=== PATIENT | female | born 1955 | race Caucasian/White ===

== ENCOUNTER → 2016-08-01 | Outpatient (CLI) | payer OTHER ==
[~2016-08-01] MED LIST: ALEN70TA2 PO; AMLO10TA2 PO; CALC-445 PO; CALC0.5C PO; CHOL1TAB42 PO; CYAN10002 IM; FERR325T5 PO; HYDR25TA4 PO; LEVO125T5 PO; METR0.7536 TOP; MULTTAB58 PO; OMEG7.5C PO; POLY335025 PO; SENN1TAB86 PO; VENL150C56 PO; VENL75CA73 PO
--- NOTE | 2016-08-02 13:46 | MAMMOGRAPHY REPORT ---
UNILATERAL LEFT DIGITAL SCREENING MAMMOGRAM TOMOSYNTHESIS WITH CAD: 08/01/2016 CLINICAL HISTORY: Asymptomatic. Personal history of breast cancer. TECHNIQUE: Breast tomosynthesis in addition to standard 2D mammography was performed of the left br east. Current study was also evaluated with a Computer Aided Detection (CAD) system. COMPARISON: Comparison is made to exams dated: 01/14/2015 mammogram, 06/20/2012 mammogram, 02/23/2011 mammogram, 01/31/2010 mammogram - [facility], and 12/31/2008. BREAST COMPOSITION: The tissue of the left breast is heterogeneously dense, which may obscure small masses. FINDINGS: There is a possible new 6 mm mass in the upper inner middle to posterior left breast, bes t seen on the CC tomosynthesis slice 29, for which additional spot compression tomosynthesis HD view s and possibly ultrasound are recommended. Otherwise, there are stable postsurgical changes throughout the left breast and a stable metallic bi opsy marker in the superior breast. Benign vascular calcifications and rim calcifications are again seen. No other suspicious mass, architectural distortion or cluster of microcalcifications is seen. IMPRESSION: ACR BI-RADS CATEGORY 0: INCOMPLETE EVALUATION: NEED ADDITIONAL IMAGING EVALUATION The possible new 6 mm mass in the left breast needs additional evaluation. The patient will be called to schedule an appointment. Approximately 10% of breast cancers are not detected with mammography. A negative mammographic repor t should not delay biopsy if a clinically suggestive mass is present. Jenny Grey M.D. ay/:08/01/2016 17:13:28 [employer] Edge Beveler: Jamshid BOWERS(R)(M), [facility] letter sent: Addl Imaging 0 BI-RADS Code: ACR BI-RADS Category 0: Incomplete Evaluation: Need Additional Imaging Evaluation
== END | disposition home or self-care (01) ==
LOC: C.MAMM 16:47
PROVIDERS: ATTEND Nurse Practitioner Family
DX: Z12.31 Encounter for screening mammogram for malignant neoplasm of breast (principal); N63 Unspecified lump in breast

== ENCOUNTER → 2016-08-17 | Outpatient (CLI) | payer OTHER ==
[~2016-08-17] MED LIST changes: -CALC0.5C PO; +CALC0.5C17 PO; +LEVO125T4 PO; -LEVO125T5 PO; -SENN1TAB86 PO; +SENN8.6T15 PO
--- NOTE | 2016-08-17 16:27 | MAMMOGRAPHY REPORT ---
UNILATERAL LEFT DIGITAL DIAGNOSTIC MAMMOGRAM TOMOSYNTHESIS AND TARGETED LEFT ULTRASOUND: 08/17/2016 CLINICAL HISTORY: Callback from screening mammogram for left breast asymmetry. TECHNIQUE: Breast tomosynthesis in addition to standard 2D mammography was performed. Left CC and MLO 2-D and tomosynthesis spot compression views were obtained. COMPARISON: Comparison is made to exams dated: 08/01/2016 mammogram, 01/14/2015 mammogram, 08/12/2013 m ammogram, 06/20/2012 mammogram, 02/23/2011 mammogram, and 02/07/2011 mammogram - [facility]. BREAST COMPOSITION: The tissue of the left breast is heterogeneously dense, which may obscure small masses. FINDINGS: The previously seen asymmetry in the left upper inner quadrant effaces on the additional spot compression views, with appearance of this region similar to prior exams dating back to at t 2008. No suspicious mass or other suspicious abnormality is seen in this region on the tomosynthes is images. Targeted ultrasound was performed of the left medial breast in the region of the mammographic asymme try. Sonographically normal tissue is seen, without evidence of a mass or other suspicious sonograp hic abnormality. Expected postsurgical changes are seen within the left breast at 9:00 on ultrasoun d at the site of her lumpectomy scar. IMPRESSION: ACR BI-RADS CATEGORY 2: BENIGN, TARGETED ULTRASOUND ACR BI-RADS CATEGORY 2: BENIGN The left breast asymmetry effaces on the additional views, without corresponding suspicious sonograp hic abnormalities evident. The asymmetry is benign and compatible with normal overlapping fibroglan dular tissue. There is no mammographic or targeted sonographic evidence of malignancy. A 1 year scr eening mammogram is recommended. The patient has been verbally notified of the results. Approximately 10% of breast cancers are not detected with mammography. A negative mammographic repor t should not delay biopsy if a clinically suggestive mass is present. Malka Fountain M.D. /:08/17/2016 14:39:38 Draw Operator: Jacque Hernandez, [facility] letter sent: Normal 1/2 BI-RADS Code: ACR BI-RADS Category 2: Benign Ultrasound BI-RADS: ACR BI-RADS Category 2: Benign
== END | disposition home or self-care (01) ==
LOC: C.MAMM 14:10
PROVIDERS: ATTEND Nurse Practitioner Family
DX: N64.89 Other specified disorders of breast (principal)

== ENCOUNTER → 2016-09-04 | Outpatient (CLI) | payer OTHER | END | disposition home or self-care (01) | LOC: C.LABPVFM 11:37 | PROVIDERS: ATTEND Nurse Practitioner Family | DX: D51.0 Vitamin B12 deficiency anemia due to intrinsic factor deficiency (principal) ==

== ENCOUNTER → 2017-03-19 | Outpatient (CLI) | payer OTHER ==
[2017-03-19 12:34] LABS: ALT/SGPT 69 U/L (12-78); AST/SGOT 55 U/L (15-37); BLOOD UREA NITROGEN 14 mg/dl (7-18); BUN/CREATININE RATIO 14.7 (10-20); CALCIUM 9.2 mg/dl (8.5-10.1); CARBON DIOXIDE 31 mmol/L (21-32); CHLORIDE 95 mmol/L (98-107); CHOLESTEROL 219 mg/dl (0-200); CREATININE 0.92 mg/dl (0.60-1.20); GLUCOSE 91 mg/dl (70-99); POTASSIUM 3.2 mmol/L (3.5-5.1); SODIUM 134 mmol/L (136-145)
[2017-03-19 12:50] LABS: ALB/GLOB RATIO 1.3 (0.9-2); ALKALINE PHOSPHATASE 108 U/L (45-117); CHOLESTEROL/HDL RATIO 1.6; HDL CHOLESTEROL 135 mg/dl; LDL CHOLESTEROL CALCULATED 62 mg/dl; TRIGLYCERIDES 108 mg/dl (0-150); VERY LOW DENSITY LIPOPROT CALC 22 mg/dl
== END | disposition home or self-care (01) ==
LOC: C.LABPVFM 10:29
PROVIDERS: ATTEND Nurse Practitioner Family
DX: E55.9 Vitamin D deficiency, unspecified (principal); D51.0 Vitamin B12 deficiency anemia due to intrinsic factor deficiency; I10 Essential (primary) hypertension; E89.0 Postprocedural hypothyroidism

== ENCOUNTER → 2017-04-03 | Outpatient (CLI) | payer OTHER ==
[2017-04-03 13:58] LABS: ALKALINE PHOSPHATASE 111 U/L (45-117); ALT/SGPT 38 U/L (12-78); AST/SGOT 26 U/L (15-37); BLOOD UREA NITROGEN 16 mg/dl (7-18); BUN/CREATININE RATIO 20.3 (10-20); CARBON DIOXIDE 28 mmol/L (21-32); CHLORIDE 103 mmol/L (98-107); GLUCOSE 95 mg/dl (70-99); POTASSIUM 4.4 mmol/L (3.5-5.1); SODIUM 137 mmol/L (136-145)
== END | disposition home or self-care (01) ==
LOC: C.LABPVFM 08:16
PROVIDERS: ATTEND Nurse Practitioner Family
DX: R74.0 Nonspecific elevation of levels of transaminase and lactic acid dehydrogenase [LDH] (principal); E87.6 Hypokalemia

== ENCOUNTER → 2017-04-12 | Outpatient (CLI) | payer OTHER ==
--- NOTE | 2017-04-12 14:44 | DIAGNOSTIC IMAGING REPORT ---
ABDOMINAL ULTRASOUND, RIGHT UPPER QUADRANT HISTORY: Elevated AST (SGOT. COMPARISON: None. FINDINGS: Liver morphology is normal. Hepatic echogenicity is at the upper limits of normal. No hepatic lesions are identified. There is no biliary ductal dilatation. The common bile duct measures 3 mm in caliber. There are no gallstones. The pancreas is within normal limits by sonography. There is no right hydronephrosis. IMPRESSION: No significant abnormality identified within the right upper quadrant. Electronically signed by: Tommie Wolff M.D. 04/12/2017 2:42 PM Dictated Date/Time: 04/12/2017 2:41 PM
== END | disposition home or self-care (01) ==
LOC: C.ULTR 14:12
PROVIDERS: ATTEND Nurse Practitioner Family
DX: R74.0 Nonspecific elevation of levels of transaminase and lactic acid dehydrogenase [LDH] (principal)

== ENCOUNTER → 2017-09-11 | Outpatient (CLI) | payer OTHER ==
[~2017-09-11] MED LIST changes: +CALC0.5C PO; -CALC0.5C17 PO; -LEVO125T4 PO; +LEVO125T5 PO; +SENN1TAB86 PO; -SENN8.6T15 PO
--- NOTE | 2017-09-12 15:10 | MAMMOGRAPHY REPORT ---
UNILATERAL LEFT DIGITAL SCREENING MAMMOGRAM TOMOSYNTHESIS WITH CAD: 09/11/2017 CLINICAL HISTORY: Asymptomatic. Personal history of breast cancer. TECHNIQUE: Breast tomosynthesis in addition to standard 2D mammography was performed. Current study was also evaluated with a Computer Aided Detection (CAD) system. COMPARISON: Comparison is made to exams dated: 08/17/2016 mammogram, 08/01/2016 mammogram, 01/14/2015 ma mmogram, 08/12/2013 mammogram, 06/20/2012 mammogram, and 08/17/2016 ultrasound - [facility]. BREAST COMPOSITION: The tissue of the left breast is heterogeneously dense, which may obscure small masses. FINDINGS: A linear scar marker overlies the upper inner question of the left breast. There is expect ed architectural distortion and lucency at the site of prior surgery in the upper inner quadrant. A stable ribbon-shaped biopsy marker clip in the upper outer quadrant of the left breast. Scattered be nign rim calcifications and mild vascular calcification. No suspicious mass, architectural distortio n or cluster of suspicious microcalcifications is seen. IMPRESSION: ACR BI-RADS CATEGORY 1: NEGATIVE There is no mammographic evidence of malignancy. A 1 year screening mammogram is recommended. The pa tient will receive written notification of the results. Approximately 10% of breast cancers are not detected with mammography. A negative mammographic report should not delay biopsy if a clinically suggestive mass is present. Jenny Grey M.D. ay/:09/11/2017 16:53:26 Home Health Nurse Licensed Practical: Quita BOWERS(Aleksander)(Toni), [facility] letter sent: Normal 1/2 BI-RADS Code: ACR BI-RADS Category 1: Negative
== END ==
LOC: C.MAMM 16:36
PROVIDERS: ATTEND Nurse Practitioner Family
DX: Z12.31 Encounter for screening mammogram for malignant neoplasm of breast (principal); Z90.11 Acquired absence of right breast and nipple

== ENCOUNTER → 2018-02-21 | Outpatient (CLI) | payer OTHER ==
[2018-02-21 17:38] LABS: HEMATOCRIT 34.1 % (37-47); HEMOGLOBIN 11.4 g/dL (12.0-16.0); IG# 0.01 K/uL (0.00-0.02); LYMPH % 25.4 %; LYMPH ABS # 0.74 K/uL (1.2-3.4); MEAN CELL VOLUME 107.6 fL (80-100); MEAN CORPUSCULAR HGB CONC 33.4 g/dl (32-36); MONO ABS # 0.35 K/uL (0.11-0.59); NEUT % 62.3 %; NEUT ABS # 1.81 K/uL (1.4-6.5); PLATELET COUNT 295 K/uL (130-400); RED CELL DISTRIBUTION WIDTH SD 51.4 fL (36.4-46.3); WHITE BLOOD COUNT 2.91 K/uL (4.8-10.8)
[2018-02-21 17:58] LABS: ALBUMIN 4.5 gm/dl (3.4-5.0); TOTAL PROTEIN 7.8 gm/dl (6.4-8.2)
== END | disposition home or self-care (01) ==
LOC: C.LABPVFM 11:26
PROVIDERS: ATTEND Registered Nurse
DX: R17 Unspecified jaundice (principal)